=== PATIENT | male | born 1955 | race Two or more races ===

== ENCOUNTER 2024-10-30 20:45 | Emergency (ER) | payer OTHER ==
[~2024-10-30] VITALS: Ht 182.9 cm; Wt 113.4 kg
[2024-10-30] MEDS ORDERED: 0.9 % SODIUM CHLORIDE 1,000 ML IV SCH (21:00)
[2024-10-30] MEDS ORDERED: TAMS0.4C (21:04)
[2024-10-30] MEDS ORDERED: COZAAR100 MG (21:04)
[2024-10-30] MEDS ORDERED: ELIQUIS5 MG (21:04)
[2024-10-30] MEDS ORDERED: METOPROLOL TART25 MG (21:04)
[2024-10-30] MEDS ORDERED: HYDROCHLOROTHIA25 MG (21:04)
[2024-10-30 21:40] LABS: HEMATOCRIT 38.1 % (39.0-48.0); HEMOGLOBIN 12.8 g/dL (13-16.00); MEAN CELL VOLUME 88.2 fL (80.0-100.00); MEAN CORPUSCULAR HEMOGLOBIN 29.6 pg (27.00-32.0); MEAN CORPUSCULAR HGB CONC 33.6 g/dl (32.0-36.0); PLATELET COUNT 198 K/uL (150-450); RED BLOOD COUNT 4.32 M/uL (4.00-6.00); RED CELL DISTRIBUTION WIDTH 13.8 % (11.5-14.5)
[2024-10-30 21:54] LABS: INR 1.14; PARTIAL THROMBOPLASTIN TIME 28.8 SECONDS (22.0-34.0); PROTHROMBIN TIME 12.3 SECONDS (9.0-11.5)
[2024-10-30 22:00] LABS: ALBUMIN 3.5 gm/dL (3.4-5.0); BILIRUBIN TOTAL 0.51 mg/dL (0.3-1.2); CALCIUM 8.7 mg/dL (8.5-10.1); CREATININE SERUM 1.43 mg/dL (0.70-1.30); GFR 49.33; GLOBULINA 3.2 G/DL (2.4-3.5); POTASSIUM 3.76 mEq/L (3.5-5.1); TOTAL PROTEIN 6.7 gm/dL (6.4-8.2)
== END 2024-10-30 23:42 | disposition home or self-care (01) ==
LOC: ER 20:45
PROVIDERS: General Practice
DX: R55 Syncope and collapse (principal); I10 Essential (primary) hypertension; Z88.5 Allergy status to narcotic agent
CPT/HCPCS: 36415; 70450; 93005; 93041; 96365; 96366; 99284; J7030